=== PATIENT | male | born 1935 | race Caucasian/White ===

== ENCOUNTER 2024-05-12 19:30 | Inpatient (IN) | payer MEDICARE, OTHER ==
[~2024-05-12] VITALS: Ht 157.5 cm; Wt 67.1 kg
[2024-05-12] MEDS ORDERED: MAGN400C PO (19:39)
[2024-05-12] MEDS ORDERED: ALLO100T56 PO (19:39)
[2024-05-12] MEDS ORDERED: ASCO500C18 PO (19:39)
[2024-05-12] MEDS ORDERED: DONE10TA44 PO (19:39)
[2024-05-12] MEDS ORDERED: LORAZEPAM 2 MG/1 ML VIAL ONE (20:28)
[2024-05-12 20:29] LABS: BASOPHILS % (AUTO) 0.6 % (0.0-2.0); EOSINOPHILS # (AUTO) 0.2 K/uL (0.0-0.7); HEMATOCRIT 34.6 % (36.7-47.1); HEMOGLOBIN 11.2 g/dL (12.5-16.3); LYMPHOCYTES # (AUTO) 2.9 K/uL (0.8-4.8); MEAN CORPUSCULAR HGB CONC 33 g/dL (32.5-36.3); MEAN CORPUSCULAR VOLUME 92.2 fL (73.0-96.2); MONOCYTES # (AUTO) 0.6 K/uL (0.1-1.30); MONOCYTES % (AUTO) 7.7 % (0.0-11.0); NEUTROPHILS # (AUTO) 3.7 K/uL (1.8-8.9); NEUTROPHILS % (AUTO) 49.7 % (38.5-71.5); PLATELET COUNT (AUTO) 199 K/uL (152-348); RED BLOOD CELL COUNT(AUTO) 3.75 MIL/uL (4.06-5.63); RED CELL DISTRIBUTION WIDTH 17.3 % (12.1-16.2); WHITE BLOOD COUNT (AUTO) 7.4 K/uL (3.6-10.2)
[2024-05-12] MEDS: LORAZEPAM 2 MG/1 ML VIAL IV ONE (20:31)
[2024-05-12 20:37] LABS: DIFFERENTIAL COMMENT 1
[2024-05-12 20:42] LABS: CALCIUM 8.4 mg/dL (8.5-10.1); CARBON DIOXIDE 24 mmol/L (21-32); CHLORIDE 107 mmol/L (98-107); CREATININE 1.1 mg/dL (0.6-1.3); GLUCOSE 102 mg/dL (74-106); POTASSIUM 3.9 mmol/L (3.5-5.1); SODIUM SERUM 141 mmol/L (136-145); UREA NITROGEN, BLOOD 26 mg/dL (7-18)
[2024-05-12 20:47] LABS: ETHANOL < 3 MG/DL (0-10)
[2024-05-12 20:48] LABS: ACETAMINOPHEN < 2.0 ug/mL (10-30); ALANINE AMINOTRANSFERASE 24 U/L (16-63); ALKALINE PHOSPHATASE 60 U/L (50-136); ASPARTATE AMINOTRANSFERASE 13 U/L (15-37); BILIRUBIN,TOTAL 0.4 mg/dL (0.2-1.0); TOTAL PROTEIN, SERUM 6.8 g/dL (6.4-8.2)
[2024-05-12 22:41] LABS: *BILIRUBIN,URIN NEGATIVE (NEGATIVE); *BLOOD, URINE NEGATIVE (NEGATIVE); *CLARITY,URINE CLEAR (CLEAR); *COLOR,URINE YELLOW (YELLOW); *KETONES,URINE NEGATIVE (NEGATIVE); *PROTEIN,URINE NEGATIVE (NEGATIVE); *UROBILINOGEN,URINE 0.2 E.U./dl (NORMAL); LEUKOCYTE ESTERASE ,URINE TRACE (NEGATIVE); NITRITE, URINE NEGATIVE (NEGATIVE); UGLUCOSE NEGATIVE (NEGATIVE)
[2024-05-12 22:49] LABS: RBC,URINE NONE SEEN /HPF (0-3)
[2024-05-12 22:50] LABS: BACTERIA,URINE NONE SEEN /HPF (NONE SEEN); SQUAMOUS EPITHELIAL CELL,UR NONE SEEN /HPF (NONE SEEN)
[2024-05-12 23:11] LABS: *AMPHETAMINE, URINE NEGATIVE (NEGATIVE); *BARBITURATE, URINE NEGATIVE (NEGATIVE)
[2024-05-12 23:12] LABS: *BENZODIAZEPINE, URINE NEGATIVE (NEGATIVE); *CANNABINOID, URINE NEGATIVE (NEGATIVE); *COCCAINE, URINE NEGATIVE (NEGATIVE); *OPIATE, URINE NEGATIVE (NEGATIVE); *PHENCYCLIDINE SCREEN,URINE NEGATIVE (NEGATIVE); FENTANYL, URINE NEGATIVE (NEGATIVE)
[2024-05-13] MEDS ORDERED: ZOLPIDEM 5 MG TABLET PO PRN (02:15)
[2024-05-13] MEDS: BLOOD SUGAR DIAGNOSTIC 1 EACH STRIP VI ONE (02:15)
[2024-05-13] MEDS ORDERED: MAGNESIUM HYDROXIDE 30 ML LIQUID UDC PO PRN ×2 (02:15→14:45)
[2024-05-13] MEDS ORDERED: MAG HYDROX/AL HYDROX/SIMETH 30 ML LIQUID UDC PO PRN (02:15)
[2024-05-13] MEDS ORDERED: PANT40TA49 PO (04:15)
[2024-05-13] MEDS ORDERED: PRAV20TA4 PO (04:15)
[2024-05-13] MEDS ORDERED: CHOL500062 PO (04:22)
[2024-05-13] MEDS ORDERED: MIRA25TA PO (04:22)
[2024-05-13] MEDS ORDERED: CYAN100085 PO (04:22)
[2024-05-13] MEDS ORDERED: MULT-1045 PO (04:28)
[2024-05-13] MEDS ORDERED: POTA10CA43 PO (04:28)
[2024-05-13] MEDS ORDERED: LEVO75TA7 PO (04:28)
[2024-05-13] MEDS ORDERED: FURO-152 PO (04:28)
[2024-05-13] MEDS ORDERED: LIPA1CAP34 PO (04:37)
[2024-05-13] MEDS ORDERED: APIX5TAB PO (04:37)
[2024-05-13] MEDS ORDERED: MEGE40TA5 PO (04:48)
[2024-05-13] MEDS ORDERED: SUVO20TA PO (04:48)
[2024-05-13] MEDS ORDERED: AMIO100T4 PO (04:48)
[2024-05-13] MEDS ORDERED: FERR-68 PO (04:48)
[2024-05-13 07:42] VITALS: BP 156/86; TEMP 98; O2SAT 98
[2024-05-13] MEDS ORDERED: ACET325T53 PO (08:54)
[2024-05-13] MEDS ORDERED: MINE133E RC (08:54)
[2024-05-13] MEDS ORDERED: BISA10SU61 RC (08:54)
[2024-05-13] MEDS ORDERED: ONDA4TAB5 PO (08:54)
[2024-05-13] MEDS ORDERED: MAGN400O6 PO (08:54)
[2024-05-13] MEDS: MAGNESIUM OXIDE 400 MG TABLET PO SCH (09:12)
[2024-05-13] MEDS: CEphaleXIN 500 MG CAPSULE PO SCH (09:13)
[2024-05-13] MEDS: ASCORBIC ACID 500 MG TABLET PO SCH (09:13)
[2024-05-13] MEDS: ALLOPURINOL 100 MG TABLET PO SCH (09:30)
[2024-05-13] MEDS ORDERED: ONDANSETRON HCL 4 MG TABLET PO PRN (14:45)
[2024-05-13] MEDS ORDERED: BISACODYL 10 MG SUPP.RECT RC PRN (14:45)
[2024-05-13] MEDS ORDERED: MINERAL OIL FLEET ENEMA 133 ML BOTTLE RC PRN (14:45)
[2024-05-13] MEDS ORDERED: ACETAMINOPHEN 325 MG TABLET-SA PATIENTS-PAIN ONLY PO PRN (14:45)
[2024-05-13] MEDS ORDERED: ACETAMINOPHEN 325 MG TABLET PO PRN (15:15)
[2024-05-13 15:52] VITALS: BP 111/60; TEMP 98; O2SAT 96
[2024-05-13] MEDS: OXCARBAZEPINE 150 MG TABLET PO SCH (16:54)
[2024-05-13] MEDS: APIXABAN 5 MG TABLET PO SCH (16:54)
[2024-05-13] MEDS: FUROSEMIDE 20 MG TABLET PO SCH (16:58)
[2024-05-13] MEDS: CYANOCOBALAMIN 1,000 MCG TABLET PO SCH (16:58)
[2024-05-13] MEDS ORDERED: LIPASE/PROTEASE/AMYLASE 1 CAP CAPSULE.DR PO SCH (17:00)
[2024-05-13] MEDS: LIPASE/PROTEASE/AMYLASE 4200 UNITS CAPSULE.DR PO SCH (17:31)
[2024-05-13 19:48] VITALS: BP 111/61; TEMP 97.8; O2SAT 97
[2024-05-13] MEDS: ATORVASTATIN 40 MG TABLET PO SCH (21:18)
[2024-05-14] MEDS: PANTOPRAZOLE SODIUM 40 MG TABLET.DR PO SCH (06:31)
[2024-05-14] MEDS: LEVOTHYROXINE SODIUM 75 MCG TABLET PO SCH (06:31)
[2024-05-14 07:30] VITALS: BP 134/66; TEMP 98.2; O2SAT 98
[2024-05-14 08:06] LABS: CALCIUM 8.5 mg/dL (8.5-10.1); CARBON DIOXIDE 30 mmol/L (21-32); CHLORIDE 105 mmol/L (98-107); CREATININE 1.1 mg/dL (0.6-1.3); GLUCOSE 92 mg/dL (74-106); GLUCOSE FASTING 92 mg/dL (70-115); POTASSIUM 4.4 mmol/L (3.5-5.1); SODIUM SERUM 140 mmol/L (136-145); UREA NITROGEN, BLOOD 27 mg/dL (7-18)
[2024-05-14] MEDS: CHOLECALCIFEROL 1,000 UNIT TABLET PO SCH (08:25)
[2024-05-14] MEDS: MULTIVITAMINS,THERAPEUTIC TABLET PO SCH (08:26)
[2024-05-14] MEDS: POTASSIUM CHLORIDE 10 MEQ TAB.PRT.SR PO SCH (08:26)
[2024-05-14] MEDS: AMIODARONE HCL 200 MG TABLET PO SCH (08:26)
[2024-05-14] MEDS: FERROUS SULFATE 325 MG TABEC PO SCH (08:31)
[2024-05-14 15:24] VITALS: BP 166/74; TEMP 98; O2SAT 98
[2024-05-14 20:00] VITALS: BP 122/56; TEMP 96.1; O2SAT 96
[2024-05-15 07:58] VITALS: BP 172/78; TEMP 97.8; O2SAT 98
[2024-05-15] MEDS: MEMANTINE HCL 5 MG TABLET PO SCH (10:20)
[2024-05-15 16:02] VITALS: BP 125/60; TEMP 98; O2SAT 98
[2024-05-15 20:00] VITALS: BP 110/59; TEMP 98; O2SAT 95
[2024-05-15] MEDS: ACETAMINOPHEN 325 MG TABLET PO PRN (20:35)
[2024-05-15] MEDS: QUETIAPINE FUMARATE 25 MG TABLET PO PRN (20:36)
[2024-05-16 08:04] VITALS: BP 153/62; TEMP 98; O2SAT 98
[2024-05-16 15:17] VITALS: BP 107/59; TEMP 98; O2SAT 98
[2024-05-16 20:00] VITALS: BP 116/93; TEMP 98; O2SAT 97
[2024-05-17 07:52] VITALS: BP 131/64; TEMP 98.6; O2SAT 98
[2024-05-17] MEDS: OXCARBAZEPINE 150 MG TABLET PO SCH (14:44)
[2024-05-17 16:11] VITALS: BP 133/83; TEMP 98.4; O2SAT 97
[2024-05-17 20:00] VITALS: BP 103/57; TEMP 98; O2SAT 99
[2024-05-17] MEDS: ZOLPIDEM 5 MG TABLET PO PRN (23:58)
[2024-05-18 08:18] VITALS: BP 111/60; TEMP 98.3; O2SAT 97
[2024-05-18 16:05] VITALS: BP 133/60; TEMP 98.1; O2SAT 97
[2024-05-18 19:45] VITALS: BP 145/60; TEMP 97.3; O2SAT 97
[2024-05-18] MEDS ORDERED: QUETIAPINE FUMARATE 25 MG TABLET PO SCH (21:00)
[2024-05-19 08:00] VITALS: BP 154/80; TEMP 98; O2SAT 98
[2024-05-19 16:00] VITALS: BP 105/58; TEMP 97.8; O2SAT 96
[2024-05-19 20:00] VITALS: BP 148/72; TEMP 97.9; O2SAT 97
[2024-05-19] MEDS: QUETIAPINE FUMARATE 25 MG TABLET PO SCH (20:39)
[2024-05-20 07:35] VITALS: BP 147/69; TEMP 98; O2SAT 96
[2024-05-20 15:53] VITALS: BP 146/84; TEMP 98; O2SAT 98
[2024-05-20 20:29] VITALS: BP 147/69; TEMP 98; O2SAT 96
[2024-05-20 20:42] VITALS: BP 116/65; TEMP 98.5; O2SAT 98
[2024-05-21 08:14] VITALS: BP 146/67; TEMP 98; O2SAT 96
[2024-05-21 15:05] VITALS: BP 106/60; TEMP 97.8; O2SAT 98
[2024-05-21 20:00] VITALS: BP 134/63; TEMP 98.4; O2SAT 96
[2024-05-22 07:41] VITALS: BP 145/75; TEMP 98; O2SAT 98
[2024-05-22 15:26] VITALS: BP 119/59; TEMP 98; O2SAT 98
[2024-05-22 19:47] VITALS: BP 148/66; TEMP 98; O2SAT 96
== END 2024-05-23 12:00 | DRG 885 ==
LOC: ER 19:31 → GPS 22:20
PROVIDERS: ADMIT Psychiatry & Neurology Psychiatry
DX: F39 Unspecified mood [affective] disorder (principal); F05 Delirium due to known physiological condition; F03.911 Unspecified dementia, unspecified severity, with agitation; F03.92 Unspecified dementia, unspecified severity, with psychotic disturbance; I42.2 Other hypertrophic cardiomyopathy; N39.0 Urinary tract infection, site not specified; I48.0 Paroxysmal atrial fibrillation; E78.5 Hyperlipidemia, unspecified; E03.9 Hypothyroidism, unspecified; K21.9 Gastro-esophageal reflux disease without esophagitis; Z79.01 Long term (current) use of anticoagulants; Z79.899 Other long term (current) drug therapy; I10 Essential (primary) hypertension; B96.89 Other specified bacterial agents as the cause of diseases classified elsewhere; Z86.73 Personal history of transient ischemic attack (TIA), and cerebral infarction without residual deficits; F94.0 Selective mutism; Z79.890 Hormone replacement therapy
CPT/HCPCS: 36415; 70450; 83735; 85025; 93005; C1758; G0480; J2060; J8499